=== PATIENT | male | born 1970 | race Caucasian/White ===

== ENCOUNTER → 2023-01-24 16:38 | Outpatient (BNVA) | payer MEDICAID, SELFPAY | PROVIDERS: PCP Nurse Practitioner Family; Visit Provider Nurse Practitioner Family | DX: R68.82 Decreased libido (principal); Z12.5 Encounter for screening for malignant neoplasm of prostate; E78.5 Hyperlipidemia, unspecified; R53.83 Other fatigue | CPT/HCPCS: 80053; 80061; 84402; G0103 ==

== ENCOUNTER → 2023-01-31 11:32 | Outpatient (BNVA) | payer MEDICAID, SELFPAY | PROVIDERS: PCP Nurse Practitioner Family; Visit Provider Nurse Practitioner Family | DX: N39.0 Urinary tract infection, site not specified (principal); R31.9 Hematuria, unspecified | CPT/HCPCS: 81000; 87086 ==

== ENCOUNTER 2023-02-01 12:14 | Outpatient (CLI) | payer MEDICAID, SELFPAY ==
--- NOTE | 2023-02-01 12:23 | XR_ITS ---
WS: [id number] XR cervical spine 3V* [id number] REASON FOR EXAM: M54.2 - Cervicalgia FINDINGS: Exaggerated lordosis of the spine. Normal odontoid with no significant vertebral body abnormality. Narrowing of the C6-C7 and C7-T1 disc spaces. Mild anterior and uncinate osteophytosis C4-C7. 3 mm of anterolisthesis of C5 on C6. Moderate degenerative changes in the facet joints bilaterally at C6-C7. Mild to moderate degenerative change in the facet joints in the right C3-C5. XR/XR cervical spine 3V* 00002 IMPRESSION: Degenerative spondylosis of the spine as above.
--- NOTE | 2023-02-01 12:23 | XR_ITS ---
WS: [email or web address] XR thoracic spine 3V* [id number] REASON FOR EXAM: M54.6 - Pain in thoracic spine FINDINGS: Slight scoliosis of the upper most thoracic spine convex left. No significant thoracic vertebral body abnormality. Mild narrowing of the disc spaces with small anterior osteophytes in the midthoracic spine. Moderate disc space narrowing with moderate endplate sclerosis and osteophytosis at T12-L1. XR/XR thoracic spine 3V* [id number] IMPRESSION: Degenerative spondylosis as above.
== END 2023-02-01 12:15 | disposition home or self-care (01) ==
LOC: RAD 12:18
PROVIDERS: PCP Nurse Practitioner Family; Visit Provider Nurse Practitioner Family
DX: M47.814 Spondylosis without myelopathy or radiculopathy, thoracic region (principal); M47.812 Spondylosis without myelopathy or radiculopathy, cervical region
CPT/HCPCS: 72040; 72072

== ENCOUNTER 2023-02-28 13:55 | Outpatient (CLI) | payer MEDICAID, SELFPAY ==
--- NOTE | 2023-02-28 14:00 | CT_ITS ---
WS: [id number] CT CERVICAL SPINE TECHNIQUE: Noncontrast CT of the cervical spine with coronal and sagittal reformatted images. CLINICAL INFORMATION: M50.30 - Other cervical disc degeneration, unspecified ce... COMPARISON: None. DLP: 136.[address] scans at [facility] use at least one of these dose optimization techniques: automated e xposure control; mA and/or kV adjustment per patient size (includes targeted exams where dose is matc hed to clinical indication); or iterative reconstruction. FINDINGS: Straightening of the normal cervical lordosis. Slight anterolisthesis C4 on C5 and C5 on C6. Slight r etrolisthesis C6 on C7. No high-grade central canal stenosis. C2-C3: Mild facet arthropathy. Spinal canal and foramen are patent. C3-C4: Mild disc osteophyte complex with endplate ridging. Moderate facet arthropathy. Moderate RIGHT and mild LEFT bony foraminal narrowing. Mild central canal stenosis. C4-C5: Disc osteophyte complex with endplate ridging. Mild central canal stenosis. Moderate facet art hropathy. Severe RIGHT and mild to moderate LEFT bony foraminal narrowing. C5-C6: Grade 1 anterolisthesis. Disc osteophyte complex with a tiny central protrusion. Mild central canal stenosis. Slight contact of the cervical cord. Severe RIGHT and mild/moderate LEFT bony foramin al narrowing. Advanced RIGHT facet arthropathy. C6-C7: Disc osteophyte complex with endplate ridging. LEFT pericentral disc osteophyte protrusion wit h indentation on the LEFT ventral cervical cord. Mild central canal stenosis. Moderate LEFT and mild RIGHT bony foraminal narrowing. Moderate facet arthropathy. C7-T1: No significant disc bulging. Spinal canal and foramen are patent. Visualized posterior nasopharynx: Normal. Prevertebral soft tissues: Normal. CT/CT cervical spin wo con* [id number] IMPRESSION: 1. Straightening of the normal cervical lordosis. Grade 1 anterolisthesis C5 o n C6. Slight retrolisthesis C6 on C7. 2. Mild central canal stenosis C3-C4 C4-C5 C5-C6 and C6-C7. Small LEFT pericen tral disc osteophyte protrusion C6-C7 with slight indentation LEFT ventral cerv ical cord. 3. Moderate to severe bony foraminal narrowing worse at RIGHT C3-C4, RIGHT C4- C5, RIGHT C5-C6 and LEFT C6-C7. 4. Moderate to advanced facet arthropathy worse at RIGHT C4-C5, RIGHT C5-C6.
== END 2023-02-28 13:56 | disposition home or self-care (01) ==
LOC: RAD 13:58
PROVIDERS: PCP Nurse Practitioner Family; Visit Provider Nurse Practitioner Family
DX: M50.30 Other cervical disc degeneration, unspecified cervical region (principal); M25.78 Osteophyte, vertebrae; M47.812 Spondylosis without myelopathy or radiculopathy, cervical region; M48.02 Spinal stenosis, cervical region
CPT/HCPCS: 72125

== ENCOUNTER → 2023-04-20 11:07 | Outpatient (BNVA) | payer MEDICAID, SELFPAY | PROVIDERS: PCP Nurse Practitioner Family; Referring Provider Nurse Practitioner Family; Visit Provider Orthopaedic Surgery | DX: M50.30 Other cervical disc degeneration, unspecified cervical region (principal); M43.12 Spondylolisthesis, cervical region; M54.50 Low back pain, unspecified; M43.27 Fusion of spine, lumbosacral region; M43.26 Fusion of spine, lumbar region | CPT/HCPCS: 72050; 72110 ==

== ENCOUNTER 2023-06-30 08:19 | Outpatient (RCR) | payer MEDICAID, SELFPAY | END 2023-07-20 23:59 | disposition home or self-care (01) | LOC: SPT 08:19 | PROVIDERS: PCP Orthopaedic Surgery; Visit Provider Orthopaedic Surgery | DX: M54.2 Cervicalgia (principal); M54.9 Dorsalgia, unspecified; G89.29 Other chronic pain | CPT/HCPCS: 97110 ==

== ENCOUNTER 2023-08-16 09:40 | Outpatient (CLI) | payer MEDICAID, SELFPAY ==
--- NOTE | 2023-08-16 10:15 | MR_ITS ---
WS: [id number] MRI CERVICAL SPINE NONCONTRAST TECHNIQUE: Sagittal T1, T2 and STIR imaging. Axial T2, gradient, and fiesta imaging. CLINICAL INFORMATION: M50.30 - Other cervical disc degeneration, unspecified ce... COMPARISON: CT cervical 02/28/2023 FINDINGS: Slight exaggeration normal cervical lordosis. Mild spondylitic changes. Cord signal is normal. Disc s pace narrowing worse at C6-7. Mild facet arthropathy. Spinal canal and foramen are patent. C2-C3: Mild facet arthropathy. Spinal canal and foramen are patent. C3-C4: Mild disc bulging with osteophytic ridging. Mild bilateral bony foraminal narrowing. Mild face t arthropathy. Spinal canal is patent. C4-C5: Mild disc osteophyte complex with endplate ridging. Moderate RIGHT greater than LEFT bony fora rajendra narrowing. Moderate RIGHT facet arthropathy. C5-C6: Advanced RIGHT facet arthropathy. Moderate LEFT and mild RIGHT bony foraminal narrowing. Spina l canal is patent. C6-C7: Shallow central disc protrusion. Moderate to severe LEFT and mild RIGHT bony foraminal narrowi ng. Mild facet arthropathy. C7-T1: Mild LEFT greater than RIGHT bony foraminal narrowing. Spinal canal is patent. Visualized brain stem structures: Normal. Prevertebral soft tissues: Normal. 9 mm RIGHT thyroid nodule. IMPRESSION: 1. Slight exaggeration of the normal cervical lordosis. Cord signal is normal. 2. No significant central canal stenosis. Cord signal is normal. 3. Disc osteophyte complexes with shallow central protrusions at C5-C6 and C6-C7. 4. Moderate to severe bony foraminal narrowing worse at RIGHT C4-5, LEFT C5-6, LEFT C6-7. 5. Asymmetric advanced facet arthropathy RIGHT C4-C5 and RIGHT C5-C6.
--- NOTE | 2023-08-16 11:00 | MR_ITS ---
WS: [id number] MRI LUMBAR SPINE NONCONTRAST TECHNIQUE: Sagittal T1, T2 and STIR imaging. Axial T1 and T2 imaging. CLINICAL INFORMATION: M54.50 - Low back pain, unspecified COMPARISON: None. FINDINGS: Mild lumbar curve. No acute compression. Pedicle screw fixation L4-S1. L1-L2: Mild facet arthropathy. Spinal canal and foramen are patent. L2-L3: Mild annular bulging with narrowing of the subarticular recess bilaterally. Mild facet arthrop athy. Foramen are patent. L3-L4: Images degraded due to susceptibility artifact from hardware. Mild central canal stenosis. For amen not well visualized. L4-L5: Pedicle screw fixation degrades images. Laminectomy defects. Spinal canal appears patent. Fora men not visualized. L5-S1: Pedicle screw fixation laminectomy defects. Spinal canal is patent. Foramina not visualized du e to hardware artifact. Visualized pelvic bony structures: Normal. Paravertebral soft tissues: Normal. IMPRESSION: 1. Pedicle screw fixation L4-S1 degrades images in the lower lumbar spine due to susceptibility asmita fact. 2. No high-grade central canal stenosis. Laminectomy defects L4-L5 and L5-S1. 3. Slight retrolisthesis L2 on L3 with mild narrowing of the subarticular recess bilaterally. 4. Mild facet arthropathy L1-L2 and L2-L3. 5. Mild central canal stenosis L3-4. 6. Foramen at L3-L5 are not visualized.
== END 2023-08-16 09:41 | disposition home or self-care (01) ==
PROVIDERS: PCP Orthopaedic Surgery; Visit Provider Orthopaedic Surgery
DX: M50.30 Other cervical disc degeneration, unspecified cervical region (principal); Z98.1 Arthrodesis status; M43.16 Spondylolisthesis, lumbar region; M48.07 Spinal stenosis, lumbosacral region; M47.816 Spondylosis without myelopathy or radiculopathy, lumbar region; M48.02 Spinal stenosis, cervical region; M47.812 Spondylosis without myelopathy or radiculopathy, cervical region; M25.78 Osteophyte, vertebrae
CPT/HCPCS: 72141; 72148

== ENCOUNTER → 2023-09-19 10:27 | Outpatient (BNVA) | payer MEDICAID, SELFPAY | PROVIDERS: PCP Nurse Practitioner Family; Visit Provider Physician Assistant | DX: M43.10 Spondylolisthesis, site unspecified (principal); M50.30 Other cervical disc degeneration, unspecified cervical region | CPT/HCPCS: 36415; 80053; 81001; 85025 ==

== ENCOUNTER → 2023-09-26 14:41 | Outpatient (BNVA) | payer MEDICAID, SELFPAY | PROVIDERS: PCP Nurse Practitioner Family; Visit Provider Family Medicine | DX: Z01.818 Encounter for other preprocedural examination (principal) | CPT/HCPCS: 81003 ==

== ENCOUNTER 2023-10-04 09:21 | Inpatient (IN) | payer MEDICAID, SELFPAY ==
[2023-10-04] VITALS (16 sets, daily range): BP systolic 105–131; BP diastolic 54–82; PULSE 68–94; RESP 9–18; TEMP 36.1–36.9; O2SAT 93–99; BMI 21.4
--- NOTE | 2023-10-04 | XR_ITS ---
WS: [email or web address] Exam: XR cervical spine 3V* [id number] Date/Time of Exam: 10/04/2023 12:00 AM Reason For Exam: C4-7 ACDF, or pic AP and lateral intraoperative C-arm images of the cervical spine are submitted. Images depict anterio r plate and screw fixation of the cervical spine from C4-C7 with intervening disc spacers. An ET tube is noted in the airway.
[2023-10-04] MEDS: sodium chloride 0.9% 1,000 ML 30 ML IV (06:30)
--- NOTE | 2023-10-04 06:37 | W.PM.OPSUD ---
Surgery/Procedure H&P Update DATE OF PROCEDURE: October 04, 2023 DATE H&P PERFORMED: 09/26/23 H&P UPDATE INFORMATION: I have reviewed H&P completed within last 30 days, I have examined patient prior to procedure and No changes to prior documentation PREOP DIAGNOSIS: Cervical spondylosis with radiculopathy, anterior listhesis PLANNED PROCEDURE: Operation Date: 10/04/23 07:00 Proposed Procedures p Anterior Cervical Discectomy & Fusion ACDF w/ Anterior Interbody Fusion w/ Cage w/ Instrumentation w/ Allograft w/ Navigation(Not Applicable) - Bryan Correia DO
--- NOTE | 2023-10-04 06:43 | ANES.PREANE2 ---
Pre-Anesthetic Assessment Height/Weight: Height 1.7 m Weight 62.142 kg Temp Pulse Resp BP Pulse Ox O2 Del Method 98.5 F 68 18 126/78 98 Room Air 10/04/23 05:50 10/04/23 05:50 10/04/23 05:50 10/04/23 05:50 10/04/23 05:50 10/04/23 05:50 Preop Diagnosis: Cervical spondylosis with radiculopathy, anterior listhesis Operation Date: 10/04/23 07:00 Proposed Procedures p Anterior Cervical Discectomy & Fusion ACDF w/ Anterior Interbody Fusion w/ Cage w/ Instrumentation w/ Allograft w/ Navigation(Not Applicable) - Bryan Correia, DO Familial anesthetic complications: None Was Beta Hiram taken within 24 hours: N/A Was Clonidine taken within 24 hours: N/A Last intake: Intake Last Liquid Date 10/03/23 Last Liquid Time 21:00 Last Solid Date 10/03/23 Last Solid Time 21:00 Social Tobacco and No alcohol Exam alert, oriented x 3, clear to auscultation bilaterally and regular rate & rhythm Airway Mallampati: Class II Dentition: full Anesthetic Plan ASA status: 2 Anesthesia: General Risk of > 500 ml blood loss (7ml/kg in children): No Medications/Allergies Home Medications Medication Instructions Recorded Confirmed Last Taken Type Bone growth stimulator #1 ea 09/29/23 Unknown Rx Allergies Allergy/AdvReac Type Severity Reaction Status Date / Time Sulfa (Sulfonamide Allergy Unknown Verified 10/03/23 08:09 Antibiotics) Current Medications Generic Name Dose Route Start Last Admin Trade Name Freq PRN Reason Stop Dose Admin Sodium Chloride 1,000 mls @ 30 mls/hr 10/04/23 05:45 10/04/23 06:30 Sodium Chloride 0.9% IV 10/05/23 05:44 30 mls/hr .Q24H LEONID Administration PFSH Anesthesia Medical History Psychiatric care Right rotator cuff tear Surgical History History of bilateral carpal tunnel release Hx of spinal fusion L5S1 Family History Other Unobtainable family history due to adoption Social History Smoking and tobacco/nicotine status: current every day tobacco/nicotine user Alcohol intake: current Alcohol intake frequency: few times a week Substance/Drug Use: current Substance/Drug use frequency: daily Adopted: Yes Household members: spouse Housing: Other Details: school bus Marital status: service: Yes status: Discharged Current occupational status: employed Current occupation: RA/pass meds at [employer] Sexually active: Yes Do you think of yourself as: Straight/Heterosexual Current gender identity: Male Data Anesthesia Cardiac Studies: No Data to Display
[2023-10-04] MEDS: ceFAZolin 2,000 MG in sodium chloride 0.9% (plus) 50 ML 100 MG IV ×3 (07:01→17:24)
[2023-10-04] MEDS: lidocaine-epi 1% PF 1:200,000 30 mL SDV INJECTION (07:58)
--- NOTE | 2023-10-04 09:13 | P.OP_ITS ---
Operative Report Date of procedure: October 04, 2023 Pre-op diagnosis: Cervical spondylosis with radiculopathy Post-op diagnosis: same Procedure done: 1. Anterior diskectomy C4/5 2. Anterior diskectomy C5/6 3. Anterior discectomy C6/7 4. Insertion of cage C4/5 5. Insertion of cage at C5/6 6. Insertion of Cage C6/7 7. Instrumentation with anterior plate from C4-C7 8. Use of allograft Surgeon: Bryan Correia DO Revenue Agent: Anthony Conley Revenue Agent: The nursing surgical services director, Anthony Conley, NICK was needed for his expertise under the microscope. He was important and necessary throughout the procedure to complete in a safe and timely manner. He assisted with patient positioning pr epping and draping tissue retraction suctioning of the operative field protection of the dural sac and tissue closure Estimated blood loss (mL): 50 Procedure: 1. Anterior diskectomy C4/5 2. Anterior diskectomy C5/6 3. Anterior discectomy C6/7 4. Insertion of cage C4/5 5. Insertion of cage at C5/6 6. Insertion of Cage C6/7 7. Instrumentation with anterior plate from C4-C7 8. Use of allograft The patient was taken to the operating room, where he underwent general endotracheal anesthesia without complications. He was then positioned supine on the operating table, and all areas of impingement were well padded. The arms were carefully padded and tucked at his sides. A roll was placed between the shoulder blades.. An x-ray was done to determine the appropriate level for the skin incision. The entire neck was then sterilely prepped and draped in the usual fashion. Neuromonitoring was attached prior to prepping. A transverse skin incision was made and carried down to the platysma muscle. This was then split in line with its fibers. Blunt dissection was carried down medial to the carotid sheath and lateral to the trachea and esophagus until the anterior cervical spine was visualized. A needle was placed into a disc and an x-ray was done to determine its location. The longus colli muscles were then elevated bilaterally with the electrocautery unit. Self-retaining retractors were placed deep to the longus colli muscle. Attention was brought to the C4/5 level that was confirmed on x-ray. A caspar pin was placed into the C4 vertebrae and the C5 vertebrae. The disk space was then distracted. The microscope was then brought in. A radical anterior discectomies were performed at C4/5. This included complete removal of the anterior annulus, nucleus, and posterior annulus. The posterior longitudinal ligament was removed as were the posterior osteophytes. Foraminotomies were then accomplished bilaterally. This was done using a high speed sruthi, kerrison rongeurs and curretes Once all of this was accomplished, the curved currette was used to check for any residual compression. The central canal was wide open as were the foramen. A high-speed bur was used to remove the cartilaginous endplates above and below the interspace. Bleeding cancellous bone was exposed. The disc space were measured and appropriate size cage were placed sterilely onto the field. Allograft graft was packed into the cages. The cage was then placed and there was good juxtaposition against the bleeding decorticated surfaces and good distraction of each interspace. Attention was brought to the next interspace. The [place] pins were removed. Bone wax was used to prevent any bleeding from occurring at the pin sites. Attention was brought to the C5/6 level that was confirmed on x-ray. A caspar pin was placed into the C5 vertebrae and the C6 vertebrae. The disk space was then distracted. The microscope was then brought in. A radical anterior discectomies were performed at C5/6. This included complete removal of the anterior annulus, nucleus, and posterior annulus. The posterior longitudinal ligament was removed as were the posterior osteophytes. Foraminotomies were then accomplished bilaterally. This was done using a high speed sruthi, kerrison rongeurs and curretes Once all of this was accomplished, the curved currette was used to check for any residual compression. The central canal was wide open as were the foramen. A high-speed bur was used to remove the cartilaginous endplates above and below the interspace. Bleeding cancellous bone was exposed. The disc space were measured and appropriate size cage were placed sterilely onto the field. Allograft graft was packed into the cages. The cage was then placed and there was good juxtaposition against the bleeding decorticated surfaces and good distraction of each interspace. Attention was brought to the next interspace. The [place] pins were removed. Bone wax was used to prevent any bleeding from occurring at the pin sites. Attention was brought to the C6/7 level that was confirmed on x-ray. A caspar pin was placed into the C6 vertebrae and the C7 vertebrae. The disk space was then distracted. The microscope was then brought in. A radical anterior discectomies were performed at C6/7. This included complete removal of the anterior annulus, nucleus, and posterior annulus. The posterior longitudinal ligament was removed as were the posterior osteophytes. Foraminotomies were then accomplished bilaterally. This was done using a high speed sruthi, kerrison rongeurs and curretes Once all of this was accomplished, the curved currette was used to check for any residual compression. The central canal was wide open as were the foramen. A high-speed bur was used to remove the cartilaginous endplates above and below the interspace. Bleeding cancellous bone was exposed. The disc space were measured and appropriate size cage were placed sterilely onto the field. Allograft graft was packed into the cages. The cage was then placed and there was good juxtaposition against the bleeding decorticated surfaces and good distraction of each interspace. Attention was brought to the next interspace. The [place] pins were removed. Bone wax was used to prevent any bleeding from occurring at the pin sites. The appropriate size anterior cervical locking plate was chosen and bent into gentle lordosis. Two screws were then placed into each of the vertebral bodies at C4, C5, C6 and C7. There was excellent purchase. A final x-ray was done confirming good position of the hardware and Cages. The locking screws were then applied, also with excellent purchase. Following a final copious irrigation, there was good hemostasis and no dural l eaks. The carotid pulse was strong. The wounds were then closed in layers using 2-0 Vicryl suture for the platysma muscle, 2-0 Vicryl suture for the subcutaneous tissue, and 4-0 monocryl suture in a subcuticular skin closure. Glue was placed followed by application of a sterile dressing. The drain was hooked to bulb suction. A soft collar was applied. The patient was then carefully returned to the supine position on his hospital bed where he was reversed and extubated and taken to the recovery room having tolerated the procedure well.
[2023-10-04] MEDS: ketorolac 30 mg/mL INJ IVP (10:09)
[2023-10-04] MEDS: lactated ringers 1,000 ML 90 ML IV ×2 (10:10→19:59)
[2023-10-04] MEDS: HYDROcodone-acetaminophen 5-325 mg Tablet PO ×3 (10:43→22:42)
[2023-10-04] MEDS: morphine 4 mg/mL SDV 1 mL 2 MG IVP ×2 (14:04→19:59)
[2023-10-04] MEDS: docusate sodium 100 mg Capsule PO (17:23)
[2023-10-05] MEDS: ceFAZolin 2,000 MG in sodium chloride 0.9% (plus) 50 ML 100 MG IV (00:20)
[2023-10-05] MEDS: HYDROcodone-acetaminophen 5-325 mg Tablet PO ×3 (02:22→11:51)
[2023-10-05 04:00] VITALS: BP 117/62; PULSE 71; RESP 16; TEMP 36.4; O2SAT 96
[2023-10-05 06:00] VITALS: BMI 21.8
--- NOTE | 2023-10-05 07:11 | P.PN_ITS ---
Subjective Subjective: POD 1 Patient resting comfortably. Reports mild neck and swallowing discomfort. Reports arm pain has improved significantly. Denies chest pain, shortness of breath, headaches. Vitals/I&O/Wt Last Vital Signs Temp 97.5 F L 10/05/23 04:00 Pulse 71 10/05/23 04:00 Resp 16 10/05/23 04:00 BP 117/62 10/05/23 04:00 Pulse Ox 96 10/05/23 04:00 O2 Del Method Room Air 10/05/23 04:00 10/04/23 10/05/23 10/05/23 22:59 06:59 14:59 Intake Total 1053.5 / 2283.5 350 / 2633.5 Output Total 695 / 795 1525 / 2320 Balance 358.5 / 1488.5 -1175 / 313.5 Weight last 48 hrs Weight 139 lb 7 oz Weight 137 lb Weight 137 lb Physical Exam Narrative: Patient is alert and oriented x3 with a good general appearance normal mood and affect. Nontender with palpation about the incisional site. Incision appears to be healing nicely without signs of erythema or drainage. No signs of infection. Good motor strength throughout both upper extremities. Appears to fire in all motor groups with 5/5 strength. Hands are warm good cap refill in all digits. Normal sensation to light touch in all dermatomal areas. A&P Assessment and plan (1) Status post cervical spinal fusion: We will discontinue Hemovac drain. Mobilize in the halls. Discharge home today. Follow-up in the office in 1 week's time encourage incentive spirometer at home for pulmonary toilet. Continue [place] J collar. (2) DDD (degenerative disc disease), cervical: Attestations Medical Necessity Statement*: Discharge home today after Hemovac drain discontinued Coding Level of Care Code Acute Code for Chg Fwd Diagnoses Status post cervical spinal fusion Z98.1 DDD (degenerative disc disease), cervical M50.30
--- NOTE | 2023-10-05 07:32 | PC.PHAR ---
OUT PATIENT SURGERY DISCHARGE MED IN CHART. UNABLE TO DO MED REC WITHOUT AFFECTING RX. 10/05/23
--- NOTE | 2023-10-05 07:53 | PC.NURSE ---
Hemovac drain discontinued. Drain tip intact. Pt. tolerated well.
[2023-10-05] MEDS: docusate sodium 100 mg Capsule PO (08:30)
--- NOTE | 2023-10-05 10:00 | PC.CHAP ---
Pastoral Care Encounter/Spiritual Assessment Type of Contact [] Declined firefighter marine visit [] Patient/Family/Request visit [] Outpatient visit [] Follow-up visit [] Physician referral [] Code/Alert [x] Routine visit [] Staff referral [] Actively dying [] Patient sleeping [] Family support [] [] Out of room [] Palliative care [] [x] Receiving care in room [] Pre-surgical visit [] Trauma [] Long length of stay [] ICU visit [] Other: Relational/Emotional Strength [] Patient feels connected with others/family/visitors/staff [x] Distress [] Loneliness/isolation [] Abandonment Spirituality of Patient [] Person of Tiffany [] Attends Yarsanism of their Tiffany [] Believes in Prayer [] Reads Bible or Moravian materials [] There are Spiritual issues to be addressed Animal Care Technician Interventions [] Prayer [] Active listening [] Non-anxious presence [] Spiritual/emotional support [] Crisis/trauma care [] Spiritual counseling [] Bereavement support [] Provided bereavement packet [] Provided Bible/devotional materials [] Provided toy/stuffed animal, coloring book to patient or family member [] Provided Communion [] Anointing/[place] [] Salvation [] Completed spiritual assessment [] Other: Impact on Illness or Injury [] Angry [] Fearful [] Anxious [] Often cries [] Exhaustion [] Unable to work [] Unable to attend synagogue [] Unable to walk/stand [] Unable to read [] Unable to drive [] Unable to eat/drink [] Unable to sleep [] Unable to be with family [] Patient intubated [] Other: Summary had surgery fusion neck in some pain well be going home Time spent with patient 10 mins
[2023-10-05 10:29] VITALS: BP 117/62; PULSE 71; RESP 16; TEMP 36.4; O2SAT 96
--- NOTE | 2023-10-05 10:30 | PC.NURSE ---
Discharge instructions provided to pt. He has no questions at this time. States that his will be unable to pick him up until 3pm today.
[2023-10-05 12:00] VITALS: BP 120/72; PULSE 76; RESP 17; TEMP 36.8; O2SAT 97
--- NOTE | 2023-10-05 14:46 | PC.NURSE ---
Pts ride has arrived. To private vehicle via wheelchair
--- NOTE | 2023-10-06 11:06 | PM.DCS ---
Discharge Providers Date of Admission: 10/04/23 09:21 Date of Discharge: October 05, 2023 Attending Provider at Admission: Bryan Correia DO Attending Provider at Discharge: Bryan Correia DO Primary Care Provider: JOHANNY Wolfe Diagnoses at Discharge Discharge Diagnosis (1) Status post cervical spinal fusion: Status: Acute (2) DDD (degenerative disc disease), cervical: Status: Acute Reason for Visit Reason for Visit: M50.30, M43.10 Discharge Data Studies Completed and Pending Completed Studies During Hospitalization Category Date Time Status XR cervical spine 3V* [id number] Routine Exams 10/04/23 Completed Vitals Last Vital Signs Temp 98.3 F 10/05/23 12:00 Pulse 76 10/05/23 12:00 Resp 17 10/05/23 12:00 BP 120/72 10/05/23 12:00 Pulse Ox 97 10/05/23 12:00 O2 Del Method Room Air 10/05/23 04:00 Discharge Plan Discharge Patient Disposition: Home Condition: Stable Prescriptions: New hydrocodone-acetaminophen 5-325 mg Tablet 1 tab PO Q4H PRN (Reason: Postoperative pain control) Qty: 30 0RF No Action (DME) Bone growth stimulator See Rx Instructions .Route .MEDSUPPLY Qty: 1 0RF Rx Instructions: As directed Discharge Orders: Discharge Order (Routine); Ordered 10/05/23 Ordered By: Anthony Conley Referrals: Bryan Correia DO [Physician] - 10/10/23 3:45 pm Kelsi Guzmán FNP [Primary Care Provider] - 10/10/23 1:20 pm Discharge Diet: Advance as tolerated Discharge Activity: Limit activity as instructed Patient Instructions: Hydrocodone/Acetaminophen (By mouth), Anterior Cervical Discectomy (DC), Opioid Safety Activity Restrictions/Additional Instructions: Thank you for choosing [facility] for your care! The following is a list of instructions, from your provider, to follow upon your discharge to ensure you have the optimal recovery from your recent injury or surgery. Anterior Cervical Discectomy and Fusion: What to Expect at Home Your Recovery Follow-up care is a palumbo part of your treatment and safety. Be sure to make and go to all appointments, and call your doctor if you are having problems. If you do not already have a follow-up appointment made, call office in the next 1-3 days to make follow up appointment for 1-2 weeks at [phone]. It is also a good idea to know your test results and keep a list of the medicines you take. You can expect your neck to feel stiff or sore after surgery. This should improve in the weeks after surgery. But it may take 4 to 6 months for you to get better completely. You may have trouble sitting or standing in one position for very long and may need pain medicine in the weeks after your surgery. It may take 4 to 6 weeks to get back to your usual activities, but it may depend on what kind of surgery you had. Your throat will feel sore and it may be difficult to swallow for the first 3 days after your surgery. As long as you can get liquids down without difficulty, this should slowly improve, otherwise call our office or seek medical attention if it becomes increasingly difficult to get anything down including liquids. Avoid hot liquids for first 3-5 days. Soothing foods/liquids such as jello, pudding, and luke warm soups are recommended until swallowing improves. Staying elevated will also help, it's advised you keep propped up at while sleeping to help reduce the swelling. You may use an ice pack directly on your incision or around it on the front of your neck, using a cloth to protect your skin; and a heating pad to the back of your neck as needed. Do not use over the counter anti-inflammatory medications (Ibuprofen, Motrin, Aleve, Advil, etc) Taking these meds after having a fusion can delay fusion rates, we recommend you avoid them for the first 3 months after your surgery[address] Dr. Correia may advise you to work with a physical therapist to strengthen the muscles around your neck and back - this will be discussed at your follow - up appointments. The pain or numbness you were having in your arms before surgery should get better or go away completely. This care sheet gives you a general idea about how long it will take for you to recover. But each person recovers at a different pace. Follow the steps below to get better as quickly as possible. How can you care for yourself at home? Activity ? Rest when you feel tired. Getting enough sleep will help you recover. ? Try to walk each day. Start by walking a little more than you did the day before. Bit by bit, increase the amount you walk. Walking boosts blood flow and helps prevent pneumonia and constipation. Walking may also decrease your muscle soreness after surgery. ? No lifting anything that is more that 5 pounds. This may include heavy grocery bags and milk containers, a heavy briefcase or backpack, cat litter or dog food bags, a child, or a vacuum frame cleaner. ? Avoid strenuous activities, such as bicycle riding, jogging, weightlifting, or aerobic exercise, until your doctor says it is okay. ? Do not drive until your follow-up visit after your surgery, or until your doctor says it isokay. ? Avoid taking long car trips for 2 to 4 weeks after surgery. Your neck may become tired and painful from sitting too long in one position. ? You will probably need to take 4 to 6 weeks off from work. It depends on the type of work you do and how you feel. ? You may have sex as soon as you feel able, but avoid positions that put stress on your neck or cause pain. Diet ? You can eat your normal diet. If your stomach is upset, try bland, low-fat foods like plain rice, broiled chicken, toast, and yogurt ? Drink plenty of fluids. If you have kidney, heart, or liver disease and have to limit fluids, talk with your doctor before you increase the amount of fluids you drink. ? You may notice that your bowel movements are not regular right after your surgery. This is common. Try to avoid constipation and straining with bowel movements. You may want to take a fiber supplement every day. If you have not had a bowel movement after a couple of days, ask your doctor about taking a mild laxative. Medicines ? Take pain medicines exactly as directed. 1. If Dr. Correia gave you a prescription medicine for pain, take lt as prescribed. 2. Do not take two or more pain medicines at the same time unless the doctor told you to. Many pain medicines have acetaminophen, which is Tylenol. Too much acetaminophen {Tylenol) can be harmful. 3. If you think your pain pill is making you sick to your stomach: 4. Take your pills after meals (unless your doctor has told you not to). 5. Ask your Dr. for a different pain pill. Incisioncare ? Remove your dressing 48 hours after your surgery. Ok to shower and get the incision wet. Do not overtly wash your incision. When done, pad dry, leave open to air thereafter. Avoid creams and ointments directly on your incision. ? Your sutures in the incision will dissolve and fall out on their own. ? Keep the area clean and dry. You may cover it with a gauze bandage if it weeps or rubs against clothing; if you choose to do this, change the dressing everyday. Other instructions ? Use a heating pad, hot water bottle, or gentle massage on your back to reduce stiffness. Avoid putting heat on your incision When should you call for help? ? Call 911 anytime you think you may need emergency care. For example, call if: ? You pass out (lose consciousness). ? You have sudden chest pain and shortness of breath, or you cough upblood. ? You cannot swallow. ? You have severe pain in your neck or back. ? Call your Dr. or seek immediate medical care if: ? You have pain that does not get better after you take pain pills. ? You have loose stitches, or your incision comes open. ? You have blood or fluid draining from the incision. ? You have signs of infection, such as: 1. Increased pain, swelling, warmth, or redness. 2. Red streaks leading from the site. 3. Pus draining from the site. 4. Swollen lymph nodes in your neck or armpits. 5. A fever. ? You have severe pain in your arms. ? You have new or increased weakness or numbness in your arms. ? Watch closely for any changes in your health, and be sure to contact your doctor if: ? You do not have a bowel movement after taking a laxative. Discharge Attestations Time Spent in Discharge Care*: less than 30 min Quality Metrics Clinical Quality Measures [ No reported AMI, CVA or VTE this stay] Coding Level of Care Code Acute Code for Chg Fwd Diagnoses Status post cervical spinal fusion Z98.1 DDD (degenerative disc disease), cervical M50.30
== END 2023-10-05 14:46 | disposition home or self-care (01) | DRG 473 ==
LOC: MEDSURG 12:21
PROVIDERS: Admitting Provider Orthopaedic Surgery; PCP Nurse Practitioner Family; Visit Provider Orthopaedic Surgery
PROC: 0RB30ZZ Excision of Cervical Vertebral Disc, Open Approach (ICD-10-PCS; CPT 22551; principal; 2023-10-04 07:00)
DX: M47.22 Other spondylosis with radiculopathy, cervical region (principal); F17.210 Nicotine dependence, cigarettes, uncomplicated; M50.120 Mid-cervical disc disorder, unspecified level
CPT/HCPCS: 72040; 76000; 97161; C1713; C1763; C9359; J0690; J1170; J1885; J2250; J2270; J2704; J2710; J3010; J3490; J7030; J7120; L0172

== ENCOUNTER → 2023-10-10 13:24 | Outpatient (BNVA) | payer MEDICAID, SELFPAY | PROVIDERS: PCP Nurse Practitioner Family; Visit Provider Nurse Practitioner Family | DX: R31.9 Hematuria, unspecified (principal); Z98.890 Other specified postprocedural states | CPT/HCPCS: 81000; 87086 ==

== ENCOUNTER → 2023-10-19 09:44 | Outpatient (BNVA) | payer MEDICAID, SELFPAY | PROVIDERS: PCP Nurse Practitioner Family; Visit Provider Physician Assistant | DX: Z47.89 Encounter for other orthopedic aftercare; Z98.1 Arthrodesis status | CPT/HCPCS: 72040 ==

== ENCOUNTER 2023-11-14 08:10 | Outpatient (CLI) | payer MEDICAID, SELFPAY ==
--- NOTE | 2023-11-14 08:45 | US_ITS ---
WS: [id number] ULTRASOUND RENAL TECHNIQUE: Ultrasound examination of both kidneys. CLINICAL INFORMATION: R31.9 - Hematuria, unspecified COMPARISON: None. FINDINGS: RIGHT: Right kidney is normal in size and appearance. Echogenicity: Normal. Cortical thickness: 1.5 cm; Normal. Hydronephrosis: None. Perinephric fluid: None. Right kidney measures: 10.9 cm x 4.7 cm x 4.6 cm. LEFT: Left kidney is normal in size and appearance. Echogenicity: Normal. Cortical thickness: 1.5 cm; Normal. Hydronephrosis: None. Perinephric fluid: None. Left kidney measures: 10.4 cm x 4.4 cm x 4.8 cm. Normal visualized aorta. Normal bladder. IMPRESSION: Normal renal ultrasound
== END 2023-11-14 08:11 | disposition home or self-care (01) ==
LOC: RAD 08:10
PROVIDERS: PCP Nurse Practitioner Family; Visit Provider Nurse Practitioner Family
DX: R31.9 Hematuria, unspecified (principal)
CPT/HCPCS: 76770

== ENCOUNTER → 2023-11-16 07:58 | Outpatient (BNVA) | payer MEDICAID, SELFPAY | PROVIDERS: PCP Nurse Practitioner Family; Visit Provider Physician Assistant | DX: Z98.1 Arthrodesis status (principal); Z47.89 Encounter for other orthopedic aftercare | CPT/HCPCS: 72040 ==

== ENCOUNTER → 2024-02-01 08:00 | Outpatient (BNVA) | payer MEDICAID, SELFPAY | PROVIDERS: PCP Nurse Practitioner Family; Visit Provider Orthopaedic Surgery | DX: Z98.890 Other specified postprocedural states (principal) | CPT/HCPCS: 72040 ==